=== PATIENT | female | born 2005 ===

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

== ENCOUNTER → 2025-02-06 | Outpatient (CLI) | payer BC ==
[~2025-02-06] MED LIST: CEPH500 PO
[2025-02-07 11:56] LABS: Candida glabrata-krusei, PCR NOT DETECTED (NOT DETECT)
[2025-02-07 12:09] LABS: Bacterial Vaginosis PCR Positive (NEGATIVE); Candida Group, PCR DETECTED (NOT DETECT)
[2025-02-07 12:32] LABS: Chlamydia Trachomatis Cervix NOT DETECTED (NOT DETECT); Neisseria Gonorrhoea Cervix NOT DETECTED (NOT DETECT)
== END ==
LOC: LAB 15:27 → LAB SHORT 15:27
PROVIDERS: Physician Assistant
DX: N94.10 Unspecified dyspareunia (principal)
CPT/HCPCS: 81515; 87491; 87591